=== PATIENT | male | born 1980 | race Caucasian/White ===

== ENCOUNTER 2019-04-19 11:58 | Emergency (ER) | payer SELFPAY ==
[~2019-04-19] VITALS: Ht 167.6 cm; Wt 82.0 kg
[2019-04-19 12:08] VITALS: BP 136/72
--- NOTE | 2019-04-19 12:16 | NUR ---
PT UNCOOPERATIVE WITH NURSING INTERVENTIONS AND ASSESSMENT. REPEATEDLY REMOVING MONITORING EQUIPMENT. REQUIRES REPEAT REDIRECTION. PT REPETITIVELY ASKING FOR WATER. DISCUSSED POC MULTIPLE TIME WITH PT BUT NEEDS REINFORCEMENT.
[2019-04-19] MEDS ORDERED: HYDROmorphone 2 MG/ML, 1ML IVPush PRN (12:30)
[2019-04-19] MEDS ORDERED: SODIUM CHLORIDE FLUSH 10ML SYR IVF ONE (12:30)
[2019-04-19] MEDS ORDERED: ONDANSETRON 2MG/ML, 2ML IVPush ONE (12:30)
--- NOTE | 2019-04-19 13:02 | NUR ---
PT REFUSES IV, LAB DRAW, NOR PAIN MEDICATION AT THIS TIME. DR MURILLO TO BEDSIDE TO DISCUSS POC. AWAITING NEW ORDERS AT THIS TIME
--- NOTE | 2019-04-19 13:09 | NUR ---
PT SITTING UP IN [place] USING USING CELL PHONE, PT DENIES PAIN NOR NEED FOR PAIN MEDICATION.
== END 2019-04-19 13:42 | disposition home or self-care (01) ==
LOC: EDBD 11:58 → ED 13:38
DX: R10.12 Left upper quadrant pain (principal); F31.9 Bipolar disorder, unspecified; F17.200 Nicotine dependence, unspecified, uncomplicated; Z88.0 Allergy status to penicillin
CPT/HCPCS: 99283